=== PATIENT | male | born 1975 | race Hispanic/Latino ===

== ENCOUNTER → 2018-03-07 | Outpatient (CLI) | payer BC, OTHER ==
[~2018-03-07] MED LIST: IOPAMIDOL 370 MG/ML 200 ML INFUS..BTL INJ ONE; METOPROLOL TARTRATE 25 MG TAB ONE; METOPROLOL TARTRATE INJ 1 MG/ML VIAL ONE; NITROGLYCERIN 0.4 MG SUBL ONE; SODIUM CHLORIDE 0.9% 100 ML ONE; SODIUM CHLORIDE 0.9% 50ML 50 ML ONE
--- NOTE | 2018-03-07 13:22 | Diagnostic Imaging Report ---
EXAM: CTA HEART WITH CONTRAST DATE: 03/07/2018 8:06 AM INDICATION: Chest pain COMPARISON: None TECHNIQUE: Contrast-enhanced CT of the coronary arteries was obtained with retrospective electrocardiogram gating. Images were reformatted at 0.5 mm intervals and sent to the [employer] workstation for interpretation of both systolic and diastolic phases. Please see nurse's note for medication and vital signs. Of note, patient had chest pressure post procedure. EKG and patient evaluated by a local emergency room physician. Please see note for further details. Contrast: 100 mL Isovue-370 Total DLP: 1289 mGy*cm Est. Eff. Dose DLP x 0.015 x size factor mSv (CTDIvol has been reviewed and is below limits set by [facility]). Study quality: Motion artifact degrades image quality, particularly RCA. FINDINGS: Coronary Arteries: Precontrast coronary artery calcium score: No coronary artery calcifications identified. Coronary artery calcium score 0. This patient has a right dominant system, with normal origins of the coronary arteries. Left Main coronary artery: No atherosclerotic disease or significant stenosis. Left anterior descending artery: No atherosclerotic disease or significant stenosis. Diagonal branches: No atherosclerotic disease or significant stenosis. Left circumflex artery: Mid to distal poorly evaluated due to motion. Obtuse marginal branches: Not well evaluated. Right coronary artery: Grossly unremarkable, with moderate motion artifact mid portion limiting evaluation. PDA: No atherosclerotic disease or significant stenosis. Ramus intermedius: Absent Cardiac findings: Pacemaker: None. Artificial valve: None. Intracardiac?closure device: None Ascending Aorta: 31 mm. Pulmonary Trunk: 23 mm. Partially Visualized Mediastinum: No acute findings. Partially Visualized Lungs: No acute findings. Other findings: None Calculated ejection fraction 59%. IMPRESSION: Within limitations of mild motion artifact, no calcified or noncalcified plaque or significant coronary artery narrowing identified. Coronary artery calcium score 0. Calculated ejection fraction 59%. Signed by: Dr. Venkatesh Delong MD on 03/07/2018 1:19 PM
== END ==
LOC: CT 07:43
PROVIDERS: ATTEND Internal Medicine
DX: R07.9 Chest pain, unspecified (principal)
CPT/HCPCS: 75574; 93005; J7050; Q9967

== ENCOUNTER 2019-10-16 16:12 | Emergency (ER) | payer SELFPAY ==
[~2019-10-16] VITALS: Ht 177.8 cm; Wt 72.6 kg
--- OUTSIDE RECORDS SUMMARY | 2019-10-16 16:14 | XMS REPORT ---
Author Author [facility] Address Unknown Phone Unavailable Care Team Providers Care Systems Programmer Name Role Phone Vannessa SNYDER Unavailable Unavailable Problems This patient has no known problems. Allergies, Adverse Reactions, Alerts This patient has no known allergies or adverse reactions. Medications This patient has no known medications. Results Test Description Test Time Test Comments Text Results Atomic Results Result Comments CTA CORONARY W or WO CALCIUM 2018-03-07 13:11:00 [place] [id number] Patient Name: JOZEF HOWE MR #: [id number] : 1975 Age/Sex: 43/M Req #: [id number] Adm Physician: Ordered by: RADHA SNYDER MD Report #: [id number] Location: CT Room/Bed: Procedure: [id number] CT/CTA CORONARY W or WO CALCIUM Exam Date: 03/07/18 Exam Time: 0900 REPORT STATUS: Signed EXAM: CTA HEART WITH CONTRAST DATE: 03/07/2018 8:06 AM INDICATION: Chest pain COMPARISON: None TECHNIQUE: Contrast- enhanced CT of the coronary arteries was obtained with retrospective electrocardiogram gating. Images were reformatted at 0.5 mm intervals and sent to the [employer] workstation for interpretation of both systolic and diastolic phases. Please see nurse's note for medication and vital signs. Of note, patient had chest pressure post procedure. EKG and patient evaluated by a local emergency room physician. Please see note for further details. Contrast: 100 mL Isovue-370 Total DLP: 1289 mGy*cm Est. Eff. Dose DLP x 0.015 x size factor mSv (CTDIvol has been reviewed and is below limits set by [facility]). Study quality: Motion artifact degrades image quality, p articularly RCA. FINDINGS: Coronary Arteries: Precontrast coronary artery calcium score: No coronary artery calcifications identified. Coronary artery calcium score 0. This patient has a right dominant system, with normal origins of the coronary arteries. Left Main coronary artery: No atherosclerotic disease or significant stenosis. Left anterior descending artery: No atherosclerotic disease or significant stenosis. Diagonal branches: No atherosclerotic disease or significant stenosis. Left circumflex artery: Mid to distal poorly evaluated due to motion. Obtuse marginal branches: Not well evaluated. Right coronary artery: Grossly unremarkable, with moderate motion artifact mid portion limiting evaluation. PDA: No atherosclerotic disease or significant stenosis. Ramus intermedius: Absent Cardiac findings: Pacemaker: None. Artificial valve: None. Intracardiac?closure device: None Ascending Aorta: 31 mm. Pulmonary Trunk: 23 mm. Partially Visualized Mediastinum: No acute findings. Partially Visualized Lungs: No acute findings. Other findings: None Calculated ejection fraction 59%. IMPRESSION: Within limitations of mild motion artifact, no calcified or noncalcified plaque or significant coronary artery narrowing identified. Coronary artery calcium score 0. Calculated ejection fraction 59%. Signed by: Dr. Venkatesh Delong MD on 03/07/2018 1:19 PM Dictated By: VENKATESH DELONG MD [id number] Transcribed By: GORAN on 03/07/18 1319 COPY TO: RADHA SNYDER MD
[2019-10-16] MEDS ORDERED: SODIUM CHLORIDE 0.9% 1000ML 1,000 ML IV STA (16:19)
[2019-10-16 17:15] LABS: BASOPHILS % 0.3 % (0.0-1.0); EOSINOPHILS # (AUTO) 0.2 (0.0-0.4); HEMATOCRIT 45.6 % (38.2-49.6); HEMOGLOBIN 15.3 g/dL (14.0-18.0); LYMPHOCYTES # (AUTO) 2.8 (1.0-3.2); LYMPHOCYTES % 28.3 % (18.0-39.1); MEAN CORPUSCULAR HEMOGLOBIN 29.4 pg (28-32); MEAN CORPUSCULAR HGB CONC 33.6 g/dL (31-35); MEAN CORPUSCULAR VOLUME 87.5 fL (81-99); MONOCYTES # (AUTO) 0.5 (0.2-0.8); MONOCYTES % 5.4 % (4.4-11.3); NEUTROPHILS # (AUTO) 6.2 (2.1-6.9); NEUTROPHILS % 63.6 % (38.7-80.0); PLATELET COUNT 326 x10e3/uL (140-360); RED BLOOD COUNT 5.21 x10e6/uL (4.3-5.7); RED CELL DISTRIBUTION WIDTH 12.7 % (11.7-14.4)
--- NOTE | 2019-10-16 17:37 | Diagnostic Imaging Report ---
EXAM: CHEST 2 VIEWS DATE: 10/16/2019 4:19 PM INDICATION: Hypertension, chest pain, weakness COMPARISON: None FINDINGS: The trachea is midline. The lungs are symmetrically expanded without evidence for focal consolidation, pneumothorax, or significant pleural effusion. The cardiomediastinal silhouette and pulmonary vasculature are within normal limits. No acute osseous abnormality is identified. The surrounding soft tissues are unremarkable. IMPRESSION: No acute cardiopulmonary process identified. Signed by: Dr. Brandon Burt MD on 10/16/2019 5:34 PM
[2019-10-16 17:49] LABS: ALANINE AMINOTRANSFERASE 31 IU/L (0-55); ALBUMIN 4.5 g/dL (3.5-5.0); ALBUMIN/GLOBULIN RATIO 1.3 (0.8-2.0); ALKALINE PHOSPHATASE 68 IU/L (40-150); BLOOD UREA NITROGEN 13 mg/dL (7-26); BUN/CREATININE RATIO 10 (6-25); CALCIUM 9.5 mg/dL (8.4-10.2); CHLORIDE 105 mmol/L (98-107); CREATINE KINASE 55 IU/L (30-200); CREATININE, SERUM 1.34 mg/dL (0.72-1.25); EST GLOMERULAR FILTRATION RATE 58 ML/MIN (60-); GLUCOSE 63 mg/dL (74-118); POTASSIUM 3.7 mmol/L (3.5-5.1); SODIUM 142 mmol/L (136-145)
[2019-10-16 18:00] LABS: ANION GAP 12.7 mmol/L (8-16); CARBON DIOXIDE 29 mmol/L (22-29)
--- NOTE | 2019-10-16 18:46 | Diagnostic Imaging Report ---
CT BRAIN WO HISTORY: 44-year-old male with hypertension, blurry vision and weakness. COMPARISON: None. TECHNIQUE: Noncontrast axial scans were obtained from skull base to the vertex. Coronal and sagittal reconstructions obtained from the axial data. One or more of the following dose reduction techniques were used: Automated exposure control, adjustment of the mA and/or kV according to patient size, and/or utilization of iterative reconstruction technique. DISCUSSION: Scalp/Skull: Unremarkable. Brain sulci: Appropriate for patient's age. Ventricles: Normal in size and configuration. No hydrocephalus. Extra-axial spaces: No masses or fluid collections. Parenchyma: No abnormal densities. No mass, hemorrhage, or large vascular territory acute infarct. Dural sinuses: No abnormal densities. Sellar/Suprasellar region: Intact. No masses. Skull base: Intact. Incidental findings: None. IMPRESSION: No intracranial abnormalities. This preliminary report was issued by Dr. Dionte Carrillo M.D. neuroradiology fellow at 1846 hours on 10/16/2019. The images and preliminary report provided by the neuroradiology fellow were reviewed and a final report issued by Dr. Connor neuroradiology faculty on 10/16/2019 at 7:28 PM. Signed by: Dr. Kiarra Wing M.D. on 10/16/2019 7:28 PM
== END 2019-10-16 19:19 | disposition home or self-care (01) ==
LOC: ER 16:12
DX: R53.1 Weakness (principal); R07.89 Other chest pain; R51 Headache; I10 Essential (primary) hypertension; N28.9 Disorder of kidney and ureter, unspecified
CPT/HCPCS: 36415; 70450; 71046; 80053; 82550; 82553; 83880; 84484; 85025; 93005; 99284; J7030